=== PATIENT | female | born 1995 | race Two or more races ===

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

== ENCOUNTER 2020-04-07 00:02 | Emergency (ER) | payer MEDICAID, OTHER ==
[~2020-04-07] VITALS: Ht 149.9 cm; Wt 68.0 kg
[2020-04-07 03:37] VITALS: BP 132/81
== END 2020-04-07 03:45 | disposition home or self-care (01) ==
LOC: ER 00:05
DX: S23.9XXA Sprain of unspecified parts of thorax, initial encounter (principal); S83.91XA Sprain of unspecified site of right knee, initial encounter; S80.211A Abrasion, right knee, initial encounter; Y08.89XA Assault by other specified means, initial encounter; Y93.89 Activity, other specified; Y92.89 Other specified places as the place of occurrence of the external cause; Y99.8 Other external cause status
CPT/HCPCS: 72128; 73562

== ENCOUNTER 2020-05-01 00:39 | Emergency (ER) | payer OTHER ==
[~2020-05-01] VITALS: Ht 149.9 cm; Wt 68.0 kg
[2020-05-01] MEDS ORDERED: ACETAMINOPHEN 325 MG TAB PO ONE (01:45)
[2020-05-01 02:08] VITALS: BP 109/74
== END 2020-05-01 03:59 | disposition left against medical advice (07) ==
LOC: ER 00:39
DX: R06.02 Shortness of breath (principal); Z53.21 Procedure and treatment not carried out due to patient leaving prior to being seen by health care provider; Z20.828 Contact with and (suspected) exposure to other viral communicable diseases
CPT/HCPCS: 36415; 71045; 87426

== ENCOUNTER 2021-07-29 08:51 | Emergency (ER) | payer SELFPAY ==
[~2021-07-29] VITALS: Ht 139.7 cm; Wt 68.0 kg
[2021-07-29 09:23] VITALS: BP 144/81
[2021-07-29 10:27] LABS: Urine Bacteria FEW /hpf (None Seen); Urine Blood Negative /uL (Negative); Urine Mucus MODERATE (None Seen); Urine Specific Gravity 1.035 (1.001-1.035); Urine WBC 27 /hpf (0 - 5); Urine WBC Clumps PRESENT /hpf (None Seen)
[2021-07-29 10:49] LABS: Basophils # (auto) 0 10 ^3/uL (0-0.2); Basophils % (auto) 0.3 % (0.0-2.0); Eosinophils # (auto) 0.1 10 ^3/uL (0-0.8); Eosinophils % (auto) 2.3 % (0.0-7.0); Hematocrit 39.7 % (36.0-46.0); Hemoglobin 13.5 g/dL (12.2-16.2); Lymphocytes # (auto) 1.5 10 ^3/uL (0.4-5.4); Lymphocytes % (auto) 30.4 % (10.0-50.0); Mean Corpuscular Hemoglobin 29.4 pg (28.0-32.0); Mean Corpuscular Hgb Conc. 33.9 g/dL (32.0-36.0); Mean Corpuscular Volume 86.7 fL (80.0-100.0); Monocytes # (auto) 0.3 10 ^3/uL (0-1.3); Monocytes % (auto) 6.3 % (0.0-12.0); Neutrophils # (auto) 3.1 10 ^3/uL (1.6-8.6); Neutrophils % (auto) 60.7 % (37.0-80.0); Nucleated Red Blood Cells % 0.1 %; Red Blood Cells 4.58 10^6/uL (4.0-5.20); Red Cell Distribution Width 13.4 % (11.8-14.3); White Blood Cell 5.1 10^3/uL (4.4-10.8)
[2021-07-29 11:15] LABS: Albumin 3.7 g/dL (3.4-5.0); BUN/Creatinine Ratio 23.3; Bilirubin, Total 0.4 mg/dL (0.2-1.0); Total Protein 7.6 g/dL (6.4-8.2)
[2021-07-29] MEDS ORDERED: KETOROLAC TROMETH 60MG/2ML VIAL IM ONE (11:15)
[2021-07-29] MEDS ORDERED: OMEP20TA PO (11:34)
[2021-07-29] MEDS ORDERED: NITR-87 PO (11:34)
== END 2021-07-29 11:44 | disposition home or self-care (01) ==
LOC: ER 08:51
DX: K21.9 Gastro-esophageal reflux disease without esophagitis (principal); N39.0 Urinary tract infection, site not specified; K76.0 Fatty (change of) liver, not elsewhere classified; F17.210 Nicotine dependence, cigarettes, uncomplicated; Z32.02 Encounter for pregnancy test, result negative
CPT/HCPCS: 36415; 76705; 80053; 81001; 81025; 83690; 85025; 96372; 99284; J1885

== ENCOUNTER 2022-03-27 11:11 | Emergency (ER) | payer SELFPAY ==
[~2022-03-27] VITALS: Ht 149.9 cm; Wt 68.1 kg
[~2022-03-27 11:11] MED LIST: NITR-87 PO; OMEP20TA PO
[2022-03-27 11:57] LABS: Urine Bacteria NONE SEEN /hpf (None Seen); Urine Blood 2+ /uL (Negative); Urine Mucus FEW (None Seen); Urine Specific Gravity 1.013 (1.001-1.035); Urine WBC 208 /hpf (0 - 5)
[2022-03-27] MEDS ORDERED: ONDANSETRON HCL 4 MG/2 ML VIAL IV ONE (12:00)
[2022-03-27] MEDS ORDERED: SODIUM CHLORIDE 0.9% 1,000 ML IVB ONE (12:00)
[2022-03-27] MEDS ORDERED: MORPHINE SULFATE 4 MG/ML SYR/VIAL IV ONE (12:00)
[2022-03-27 12:02] LABS: Basophils # (auto) 0 10 ^3/uL (0-0.2); Basophils % (auto) 0.5 % (0.0-2.0); Eosinophils # (auto) 0 10 ^3/uL (0-0.8); Eosinophils % (auto) 0.2 % (0.0-7.0); Hematocrit 41.1 % (36.0-46.0); Hemoglobin 13.6 g/dL (12.2-16.2); Lymphocytes % (auto) 12.2 % (10.0-50.0); Mean Corpuscular Hemoglobin 29.7 pg (28.0-32.0); Mean Corpuscular Volume 90.1 fL (80.0-100.0); Monocytes # (auto) 0.6 10 ^3/uL (0-1.3); Monocytes % (auto) 7.8 % (0.0-12.0); Neutrophils # (auto) 6.6 10 ^3/uL (1.6-8.6); Neutrophils % (auto) 79.3 % (37.0-80.0); Nucleated Red Blood Cells % 0.1 %; Red Blood Cells 4.56 10^6/uL (4.0-5.20); White Blood Cell 8.3 10^3/uL (4.4-10.8)
[2022-03-27 12:14] LABS: Albumin 3.5 g/dL (3.4-5.0); BUN/Creatinine Ratio 9.2; Calcium 8.8 mg/dL (8.5-10.1); Potassium 3.7 mmol/L (3.5-5.1)
[2022-03-27 12:17] LABS: Bilirubin, Total 1.9 mg/dL (0.2-1.0); Total Protein 7.6 g/dL (6.4-8.2)
[2022-03-27] MEDS ORDERED: IOHEXOL 300 MG/ML 100ML BOTTLE IJ ONE (12:40)
[2022-03-27 12:47] LABS: Magnesium 2.3 mg/dL (1.6-2.6)
[2022-03-27] MEDS ORDERED: cefTRIAXone 1GM/50ML D5W 50 ML IV ONE (15:30)
[2022-03-27] MEDS ORDERED: cefTRIAXone SOD 1,000 MG VL IM ONE (15:45)
[2022-03-27] MEDS ORDERED: CIPR-173 PO (18:58)
[2022-03-27 19:10] VITALS: BP 116/71
[2022-03-28] MEDS ORDERED: CEPH-510 PO (03:44)
== END 2022-03-27 19:08 | disposition home or self-care (01) ==
LOC: ER 11:11
DX: N12 Tubulo-interstitial nephritis, not specified as acute or chronic (principal); N39.0 Urinary tract infection, site not specified; F17.210 Nicotine dependence, cigarettes, uncomplicated; R10.2 Pelvic and perineal pain
CPT/HCPCS: 36415; 74177; 80053; 81001; 83605; 83690; 83735; 84702; 85025; 87040; 87077; 87186; 96361; 96372; 96374; 96375; 99285; J0696; J2270; J2405; J7030; Q9967

== ENCOUNTER 2023-11-25 10:41 | Emergency (ER) | payer MEDICAID, OTHER ==
[~2023-11-25] VITALS: Ht 149.9 cm; Wt 55.0 kg
[~2023-11-25 10:41] MED LIST changes: +CEPH-510 PO; +CIPR-173 PO
[2023-11-25 11:35] LABS: Urine Bacteria None Seen /hpf (None Seen)
[2023-11-25 11:43] LABS: Urine Blood Negative /uL (Negative); Urine Clarity Turbid (Clear); Urine Color Yellow (Yellow); Urine Mucus MANY (None Seen); Urine Protein, UAD 1+ (Negative); Urine Specific Gravity 1.029 (1.001-1.035); Urine Urobilinogen 4 mg/dL (Negative); Urine WBC 4 /hpf (0 - 5); Urine pH 6.5 (5.0-9.0)
[2023-11-25] MEDS: ONDANSETRON ODT 4 MG TAB PO ONE (11:54)
[2023-11-25] MEDS: ACETAMINOPHEN 500 MG TAB PO ONE (11:54)
[2023-11-25 12:01] VITALS: BP 104/68; PULSE 95; RESP 20; TEMP 98; O2SAT 96
[2023-11-25] MEDS ORDERED: ACET500T58 PO (12:32)
[2023-11-25] MEDS ORDERED: ZOFR4T PO (12:32)
== END 2023-11-25 12:58 | disposition home or self-care (01) ==
LOC: ER 10:41
DX: O21.8 Other vomiting complicating pregnancy (principal); R10.2 Pelvic and perineal pain; Z3A.01 Less than 8 weeks gestation of pregnancy
CPT/HCPCS: 81001; 81025; 99283; Q0162

== ENCOUNTER 2023-11-28 10:49 | Emergency (ER) | payer MEDICAID ==
[~2023-11-28] VITALS: Ht 149.9 cm; Wt 54.1 kg
[~2023-11-28 10:49] MED LIST changes: +ACET500T58 PO; +ZOFR4T PO
[2023-11-28 11:41] LABS: Urine Bacteria None Seen /hpf (None Seen)
[2023-11-28 11:52] LABS: Urine Blood TRACE /uL (Negative); Urine Clarity Clear (Clear); Urine Color Yellow (Yellow); Urine Mucus FEW (None Seen); Urine Protein, UAD TRACE (Negative); Urine Specific Gravity 1.016 (1.001-1.035); Urine Urobilinogen Normal (Negative); Urine WBC 2 /hpf (0 - 5)
[2023-11-28] MEDS: SODIUM CHLORIDE 0.9% 1,000 ML IV ONE (12:23)
[2023-11-28 12:29] LABS: Basophils # (auto) 0 10 ^3/uL (0-0.2); Basophils % (auto) 0.2 % (0.0-2.0); Eosinophils # (auto) 0 10 ^3/uL (0-0.8); Eosinophils % (auto) 0.5 % (0.0-7.0); Hematocrit 40.2 % (36.0-46.0); Hemoglobin 14.1 g/dL (12.2-16.2); Lymphocytes # (auto) 1.3 10 ^3/uL (0.4-5.4); Lymphocytes % (auto) 22.5 % (10.0-50.0); Mean Corpuscular Hemoglobin 31.8 pg (28.0-32.0); Mean Corpuscular Hgb Conc. 35.2 g/dL (32.0-36.0); Mean Corpuscular Volume 90.3 fL (80.0-100.0); Monocytes # (auto) 0.3 10 ^3/uL (0-1.3); Monocytes % (auto) 5.5 % (0.0-12.0); Neutrophils # (auto) 4.2 10 ^3/uL (1.6-8.6); Neutrophils % (auto) 71.3 % (37.0-80.0); Red Blood Cells 4.45 10^6/uL (4.0-5.20); Red Cell Distribution Width 13.1 % (11.8-14.3); White Blood Cell 5.9 10^3/uL (4.4-10.8)
[2023-11-28 12:50] LABS: Albumin 4.7 g/dL (3.2-4.8); Alkaline Phosphatase 44 U/L (46-116); Anion Gap 5 (5-15); Aspartate Aminotransferase < 8 U/L (13-40); Calcium 9.8 mg/dL (8.5-10.1); Carbon Dioxide 24 mmol/L (20-30); Chloride 105 mmol/L (98-107); Glucose 94 mg/dL (74-106); Potassium 3.7 mmol/L (3.5-5.1); Sodium 134 mmol/L (136-145)
[2023-11-28 12:51] LABS: Bilirubin, Total 1.2 mg/dL (0.2-1.0); Total Protein 7.4 g/dL (5.7-8.2)
[2023-11-28 12:52] LABS: Alanine Aminotransferase < 9 U/L (7-40); BUN/Creatinine Ratio 8.6 (10.0-20.0); Blood Urea Nitrogen < 5 mg/dL (9-23)
[2023-11-28 13:55] VITALS: BP 119/65; PULSE 70; RESP 18; O2SAT 98
== END 2023-11-28 14:00 | disposition home or self-care (01) ==
LOC: ER 10:49
DX: O20.8 Other hemorrhage in early pregnancy (principal); R10.2 Pelvic and perineal pain; F17.210 Nicotine dependence, cigarettes, uncomplicated; Z3A.01 Less than 8 weeks gestation of pregnancy; Z79.899 Other long term (current) drug therapy
CPT/HCPCS: 36415; 76801; 76817; 80053; 81001; 81025; 84702; 85025; 86850; 86900; 86901; 96360; 96361; 99284; J7030